=== PATIENT | male | born 1950 | race American Indian/Alaskan Native ===

== ENCOUNTER 2016-06-21 15:42 | Emergency (ER) | payer MEDICARE ==
--- NOTE | 2016-06-21 19:57 | Emergency Department Report ---
ED Male HPI - General Chief complaint: Urogenital-Male Stated complaint: UNABLE TO URINATE Time Seen by Provider: 06/21/16 19:57 Source: patient Mode of arrival: Ambulatory Limitations: No Limitations - History of Present Illness Initial comments: Patient here complaining of difficulty urinating 3 days. He said he has some burning with urinating. Denies any nausea vomiting. Denies any pain at present. Denies any blood in his urine. Denies any abdominal or back pain. Denies any fever or chills. Patient is a diabetic and his blood sugar is stable MD Complaint: dysuria, other (difficlty urinating) Onset/Timin -: days(s) Severity scale (0 -10): 0 dysuria. denies: discharge, swelling, mass, rash, urinary retention, blood in urine, fever, nausea/vomiting, incontinence - Related Data Sexually active: Yes Previous Rx's Medication Instructions Recorded Last Taken Type Ciprofloxacin HCl [Ciprofloxacin 500 mg PO Q12HR #20 tab 06/21/16 Unknown Rx TAB] Allergies Allergy/AdvReac Type Severity Reaction Status Date / Time No Known Allergies Allergy Unverified 06/21/16 16:08 ED Review of Systems ROS: Stated complaint: UNABLE TO URINATE Other details as noted in HPI Comment: All other systems reviewed and negative Constitutional: no symptoms reported Respiratory: no symptoms reported Cardiovascular: denies: chest pain, palpitations, edema, syncope Gastrointestinal: denies: abdominal pain, nausea, vomiting, diarrhea Genitourinary: dysuria, other (difficulty urinating). denies: urgency, frequency, hematuria, discharge, testicular pain, testicular mass Skin: denies: rash Neurological: denies: headache ED Past Medical Hx - Past Medical History Previous Medical History?: Yes Hx Hypertension: Yes Hx Diabetes: Yes (TYPE 2) Hx Psychiatric Treatment: Yes (DEPRESSION / ANXIETY) - Surgical History Past Surgical History?: Yes Additional Surgical History: BACK SURGERY - Family History Family history: diabetes, hypertension - Social History Smoking Status: Never Smoker Substance Use Type: Prescribed - Medications Home Medications: Home Medications Medication Instructions Recorded Confirmed Last Taken Type Ciprofloxacin HCl [Ciprofloxacin 500 mg PO Q12HR #20 tab 06/21/16 Unknown Rx TAB] ED Physical Exam - General Limitations: No Limitations General appearance: alert, in no apparent distress - Head Head exam: Present: atraumatic, normocephalic, normal inspection - Respiratory Respiratory exam: Present: normal lung sounds bilaterally. Absent: respiratory distress - Cardiovascular Cardiovascular Exam: Present: regular rate, normal rhythm, normal heart sounds - GI/Abdominal GI/Abdominal exam: Present: soft, normal bowel sounds. Absent: distended, tenderness, guarding, rebound, rigid - Back Exam Back exam: Present: normal inspection, full ROM. Absent: tenderness, CVA tenderness (R), CVA tenderness (L), muscle spasm, paraspinal tenderness, vertebral tenderness, rash noted - Neurological Exam Neurological exam: Present: alert, oriented X3, normal gait, reflexes normal. Absent: motor sensory deficit - Psychiatric Psychiatric exam: Present: normal affect, normal mood - Skin Skin exam: Present: warm, dry ED Course Vital Signs 06/21/16 16:02 Temperature 98.2 F Pulse Rate 91 H Respiratory 20 Rate Blood Pressure 130/81 O2 Sat by Pulse 99 Oximetry - Reevaluation(s) Reevaluation #1: 06/21/16 20:50 Patient stable ED Medical Decision Making - Lab Data Lab Results 06/21/16 Range/Units 21:10 Urine Color Yellow (Yellow) Urine Turbidity Clear (Clear) Urine pH 5.0 (5.0-7.0) Ur Specific [place] 1.023 (1.003-1.030) Urine Protein <15 mg/dl (Negative) mg/dL Urine Glucose (UA) Neg (Negative) mg/dL Urine Ketones Neg (Negative) mg/dL Urine Blood Neg (Negative) Urine Nitrite Neg (Negative) Urine Bilirubin Neg (Negative) Urine Urobilinogen < 2.0 (<2.0) mg/dL Ur Leukocyte Esterase Tr (Negative) Urine WBC (Auto) 11.0 H (0.0-6.0) /HPF Urine RBC (Auto) 2.0 (0.0-6.0) /HPF Urine Bacteria (Auto) 1+ (Negative) /HPF Calcium Oxalate Crystal 1+ Urine Mucus Few /HPF Urine culture pending - Medical Decision Making ED course: Discussed with patient that he has a very small bladder infection and will be treated with antibiotic. Discussed with him that he needs to follow -up with his primary care physician in 2-3 days. Patient blood sugar in triage area was stable. He was understanding of discharge instruction and discharged home. She is awaiting Medicaid transport. Prescription given for ciprofloxacin.. Critical care attestation.: If time is entered above; I have spent that time in minutes in the direct care of this critically ill patient, excluding procedure time. ED Disposition Clinical Impression: Acute cystitis without hematuria, Dysuria Disposition: DISCHARGED TO HOME OR SELFCARE Is pt being admited?: No Does the pt Need Aspirin: No Condition: Stable Instructions: Urinary Tract Infection in Men (ED), Dysuria (ED) Additional Instructions: Please increase her fluid intake. Take medication as prescribed. Prescriptions: Ciprofloxacin HCl [Ciprofloxacin TAB] 500 mg PO Q12HR #20 tab Referrals: MAHESH SPENCER [Other] - 2-3 Days
[2016-06-21 22:14] LABS: Bacteria,Urine 1+ /HPF (Negative); Bilirubin,Urine NEG (Negative); Blood,Urine NEG (Negative); Ketones,Urine NEG (Negative); Leukocyte Esterase,Urine TR (Negative); Mucus,Urine FEW /HPF; Nitrite,Urine NEG (Negative); Protein,Urine <15 mg/dL mg/dL (Negative); Urobilinogen,Urine < 2.0 mg/dL (<2.0)
[2016-06-21 23:04] VITALS: BP 127/78
== END 2016-06-21 23:37 | disposition home or self-care (01) ==
LOC: ED 15:42
DX: N30.00 Acute cystitis without hematuria (principal); I10 Essential (primary) hypertension; E11.9 Type 2 diabetes mellitus without complications; F32.9 Major depressive disorder, single episode, unspecified; F41.9 Anxiety disorder, unspecified
CPT/HCPCS: 81001; 99283

== ENCOUNTER 2016-08-28 13:00 | Emergency (ER) | payer MEDICARE ==
[2016-08-28] MEDS ORDERED: NACL 0.9% 1000 ML 1,000 ML IV ONE (16:39)
[2016-08-28] MEDS ORDERED: ZOFRAN IV ONE (16:39)
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
[2016-08-28 18:25] VITALS: BP 126/67
[2016-08-28 18:29] LABS: Anion Gap 16 mmol/L; BUN/Creatinine Ratio 26.66; Basophils % (Auto) 0.4 % (0.0-1.8); Blood Urea Nitrogen 24 mg/dL (9-20); Calcium 8.7 mg/dL (8.4-10.2); Carbon Dioxide 26 mmol/L (22-30); Chloride 108.6 mmol/L (98-107); Eosinophils % (Auto) 0.3 % (0.0-4.3); Glucose 97 mg/dL (75-100); Hematocrit 37.7 % (35.5-45.6); Hemoglobin 12.3 gm/dl (11.8-15.2); Mean Corpuscular HGB Conc 33 % (32-34); Mean Corpuscular Hemoglobin 29 pg (28-32); Mean Corpuscular Volume 88 fl (84-94); Platelet Count 171 K/mm3 (140-440); Potassium 3.9 mmol/L (3.6-5.0); Sodium 147 mmol/L (137-145); White Blood Count 8.8 K/mm3 (4.5-11.0)
[2016-08-28 18:44] LABS: Alanine Aminotransferase 11 units/L (7-56); Albumin 3.8 g/dL (3.9-5); Albumin/Globulin Ratio 1.7 %; Alkaline Phosphatase 71 units/L (35-129); Bilirubin,Total 0.4 mg/dL (0.1-1.2); Lipase 22 units/L (13-60); Total Protein 6.1 g/dL (6.3-8.2)
[2016-08-28 18:55] LABS: Bilirubin,Direct < 0.2 mg/dL (0-0.2); Bilirubin,Indirect 0.2 mg/dL
[2016-08-28] MEDS ORDERED: NACL ONE (19:06)
--- NOTE | 2016-08-28 20:19 | Cat Scan Report ---
FINAL REPORT EXAM: CT ABDOMEN PELVIS W CON HISTORY: n/v/abd pain COMPARISON: None available. TECHNIQUE: Contiguous axial images were obtained. Additional sagittal and coronal reformatted images were obtained. Administration of IV contrast given per institution protocol. Images submitted for interpretation. FINDINGS: Mild linear scarring or atelectasis at the lung bases. No calcified gallstones or biliary dilatation. Homogeneous enhancement of the liver, spleen, pancreas. Mild nodular thickening of adrenal glands. Symmetric enhancement the kidneys. 3.0 x 3.0 centimeter superior left renal cyst. There additional subcentimeter low-attenuation renal lesions bilaterally. These are too small to accurately characterize by CT, but may reflects cysts. 2 millimeter nonobstructive right renal calculus. Infrarenal IVC filter is in place. Aorta is normal in caliber. Urinary bladder and prostate gland are grossly unremarkable. Moderate large amount of stool throughout the colon most pronounced within the rectosigmoid colon. The appendix is normal in caliber. Tiny left inguinal hernia containing fat and fluid. Small right inguinal hernia containing fat and partially containing small bowel loops. No associated bowel obstruction. Prior surgery involving small bowel loops left mid abdomen. No bowel obstruction. No gross focal inflammatory changes the bowel. Trace fluid at the margin of the liver. No abscess or free air. Moderate degenerative changes of the lumbar spine. Lumbar vertebral body heights preserved. Bony pelvis is grossly intact. IMPRESSION: Trace fluid at the margin of the liver of uncertain etiology. Liver is unremarkable. Moderate large amount of stool within the colon. Small right inguinal hernia containing fat and portion of small bowel. No associated bowel obstruction. No gross inflammatory changes the bowel. Prior surgery involving small bowel loops left mid abdomen. The appendix is normal in caliber. No other gross acute findings.
[2016-08-28 21:10] LABS: Bilirubin,Urine NEG (Negative); Blood,Urine NEG (Negative); Ketones,Urine TR mg/dL (Negative); Leukocyte Esterase,Urine NEG (Negative); Nitrite,Urine NEG (Negative); Protein,Urine <15 mg/dL mg/dL (Negative)
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
== END 2016-08-28 22:45 | disposition home or self-care (01) ==
LOC: ED 13:00
DX: K40.90 Unilateral inguinal hernia, without obstruction or gangrene, not specified as recurrent (principal); R11.2 Nausea with vomiting, unspecified; I10 Essential (primary) hypertension; E11.9 Type 2 diabetes mellitus without complications; F32.9 Major depressive disorder, single episode, unspecified; F41.9 Anxiety disorder, unspecified
CPT/HCPCS: 36415; 74020; 74177; 80048; 80074; 81001; 82962; 83690; 85025; 96361; 96374; 99285; J2405; J7030; Q9967